=== PATIENT | male | born 2000 | race Hispanic/Latino ===

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

== ENCOUNTER 2022-12-06 16:02 | Emergency (ER) | payer MEDICAID ==
[~2022-12-06] VITALS: Ht 175.3 cm; Wt 63.5 kg
[2022-12-06] MEDS ORDERED: ONDANSETRON ODT 4MG TAB SL ONE (19:00)
[2022-12-06] MEDS ORDERED: KETOROLAC 60 MG VIAL (30MG/ML) IM ONE (19:00)
[2022-12-06 19:27] VITALS: BP 139/77
== END 2022-12-06 19:35 | disposition home or self-care (01) ==
LOC: EDH 16:02
DX: S00.81XA Abrasion of other part of head, initial encounter (principal); R55 Syncope and collapse; X58.XXXA Exposure to other specified factors, initial encounter; Y93.89 Activity, other specified; Y92.89 Other specified places as the place of occurrence of the external cause; Y99.8 Other external cause status
CPT/HCPCS: 70450; 70486; J1885